=== PATIENT | female | born 1930 | race Caucasian/White ===

== ENCOUNTER 2020-10-15 11:51 | Inpatient (IN) | payer MEDICARE, OTHER ==
[~2020-10-15] VITALS: Ht 157.5 cm; Wt 63.0 kg
--- NOTE | 2020-10-15 12:00 | NUR ---
bibra from home c/o glf, r hip pain and r shoulder pain. Patient a/ox2-3, breathing even and unlabored, nos ob noted, attached tot he teletypesetter monitor. No distress noted.
--- NOTE | 2020-10-15 12:41 | NUR ---
MOVE SHEET SUBMITTED AND CALLED FOR TELE BED.
--- NOTE | 2020-10-15 12:46 | NUR ---
patient taken to ct.
[2020-10-15] MEDS ORDERED: ZOLP10TA2 PO (13:17)
[2020-10-15] MEDS ORDERED: SITA50TA PO (13:17)
[2020-10-15] MEDS ORDERED: DEXL60CA3 PO (13:17)
[2020-10-15] MEDS ORDERED: CELE-85 PO (13:17)
[2020-10-15] MEDS ORDERED: ALPR0.5T8 PO (13:17)
[2020-10-15] MEDS ORDERED: GABA-532 PO (13:17)
[2020-10-15] MEDS ORDERED: OLME20TA23 PO (13:17)
[2020-10-15] MEDS ORDERED: TRAM50TA2 PO (13:17)
[2020-10-15] MEDS ORDERED: INSU100I26 SQ (13:17)
[2020-10-15] MEDS ORDERED: NEBI10TA2 PO (13:17)
[2020-10-15 13:35] LABS: CALCIUM, SERUM 9.3 mg/dL (8.5-10.1); CARBON DIOXIDE 26 mmol/L (21-32); CHLORIDE 100 mmol/L (98-107); CREATININE 0.8 mg/dL (0.6-1.3); GLUCOSE 181 mg/dL (74-106); POTASSIUM 4.9 mmol/L (3.5-5.1); SODIUM SERUM 136 mmol/L (136-145); UREA NITROGEN, BLOOD 12 mg/dL (7-18)
[2020-10-15 13:41] LABS: ALANINE AMINOTRANSFERASE 26 U/L (12-78); ALBUMIN 3.6 g/dL (3.4-5.0); ALKALINE PHOSPHATASE 189 U/L (46-116); ASPARTATE AMINOTRANSFERASE 29 U/L (15-37); BILIRUBIN,DIRECT 0.4 mg/dL (0.0-0.2); BILIRUBIN,TOTAL 1.1 mg/dL (0.2-1.0)
[2020-10-15 15:33] LABS: BASOPHILS # (AUTO) 0.1 /CMM (0.0-0.2); BASOPHILS % (AUTO) 0.7 % (0.0-2.0); EOSINOPHILS % (AUTO) 0.1 % (0.0-6.0); HEMATOCRIT 44 % (33-45); HEMOGLOBIN 14.1 g/dL (11.5-14.8); LYMPHOCYTES # (AUTO) 1.2 /CMM (0.8-4.8); LYMPHOCYTES % (AUTO) 8.5 % (20.0-44.0); MEAN CORPUSCULAR HGB CONC 32 g/dl (31.0-36.0); MEAN CORPUSCULAR VOLUME 85 fL (82-100); MONOCYTES # (AUTO) 0.7 /CMM (0.1-1.30); MONOCYTES % (AUTO) 5.4 % (2.0-12.0); NEUTROPHILS # (AUTO) 11.6 /CMM (1.8-8.9); NEUTROPHILS % (AUTO) 85.3 % (43.0-81.0); PLATELET COUNT (AUTO) 283 /CMM (150-450); RED BLOOD CELL COUNT(AUTO) 5.18 MIL/uL (4.0-5.2); WHITE BLOOD COUNT (AUTO) 13.6 K/uL (4.3-11.0)
[2020-10-15] MEDS ORDERED: ONDANSETRON HCL/PF 4 MG/2 ML VIAL IVP PRN (16:00)
[2020-10-15] MEDS ORDERED: IV NS 0.9% 1,000 ML IV PRN (16:00)
[2020-10-15] MEDS ORDERED: ZOLPIDEM TARTRATE 5 MG TABLET PO PRN (16:00)
[2020-10-15] MEDS ORDERED: ACETAMINOPHEN 325 MG TABLET PO PRN (16:00)
[2020-10-15] MEDS ORDERED: MAG HYDROX/AL HYDROX/SIMETH 30 ML UDC PO PRN (16:00)
[2020-10-15] MEDS ORDERED: MAGNESIUM HYDROXIDE 30 ML UDC PO PRN (16:00)
[2020-10-15] MEDS ORDERED: Z GUARD REMEDY 2 OZ OINT TP PRN (16:00)
[2020-10-15] MEDS ORDERED: GABAPENTIN 300 MG CAPSULE ONE (20:48)
--- NOTE | 2020-10-15 20:57 | NUR ---
SPOKE TO PHARMACY REGARDING ADMISSION MEDS. AWAITING FOR PHARMACY TO DELIVER MEDS.
--- NOTE | 2020-10-15 21:31 | NUR ---
bed assignment: 306-2
--- NOTE | 2020-10-15 22:00 | NUR ---
REPORT GIVEN TO SAYDA DEJESUS FOR ADMISSION. PER SAYDA, BRING PT TO 306-1
--- NOTE | 2020-10-15 22:06 | NUR ---
REPORT GIVEN TO ISRAEL DEJESUS FOR DHEERAJ
--- NOTE | 2020-10-15 22:33 | NUR ---
PT'S MEDS GIVEN TO LAURI DEJESUS BY EMT.
--- NOTE | 2020-10-15 22:33 | NUR ---
PT TRANSFERED PER [facility]
[2020-10-15 22:35] VITALS: BP 107/67
--- NOTE | 2020-10-15 22:35 | NUR ---
TELERN RECEIVED FROM ER CONFUSED FEMALE GREEK PATIENT S/P GLF AT HOME. UNABLE TO GET INFORM. NO SOB V/S STABLE PLACED TO BED COMFORTABLY, TRYING TO GET OOB. SIDERAILS X3 UP. HOB ELEVATED. UNCOOPERATIVE FOR NOW. TO CONTINUE.
--- NOTE | 2020-10-16 00:53 | NUR ---
TELERN LATE MEDS STARTED, INITIALLY REFUSED ANY MEDS. STATED "NO MEDICINE" INCONTINENT, KEPT DRY CLEAN AND COMFORTABLE. REPOSITIONED .
[2020-10-16] MEDS: ENOXAPARIN SODIUM 40 MG/0.4 ML DISP.SYRIN SQ SCH ×2 (01:41→21:20)
[2020-10-16] MEDS: INSULIN GLARGINE, 100 UNIT/ML CARTRIDGE SQ SCH ×2 (01:44→22:26)
[2020-10-16] MEDS: GABAPENTIN 300 MG CAPSULE PO SCH ×3 (01:46→16:19)
--- NOTE | 2020-10-16 02:00 | NUR ---
TELERN WAS QUIET FOR AWHILE AGREED TO TAKE ONLY PAIN MED. BS WAS 236, LANTUS 30 UNITS STARTED.
[2020-10-16] MEDS: HYDROCODONE/APAP 5/325MG TABLET PO PRN ×2 (02:07→11:43)
--- NOTE | 2020-10-16 03:45 | NUR ---
TELERN MOVED TO ROOM 309 FOR CLOSER OBSERVATION. STARTING TO PULL LINE AND TELE AND [place]. STILL UNABLE TO CONNECT PT TO IVF FOR NOW. NEEDS CONSTANT OBSERVATION. BED ALARM ON. CLOSELY WATCHED.
[2020-10-16 05:30] VITALS: BP 100/73
--- NOTE | 2020-10-16 05:42 | NUR ---
TELERN PULLED OUT HEPLOCK, COMBATIVE THIS TIME. QUIET WHEN LEFT FOR FEW MIN.
[2020-10-16 06:55] LABS: BASOPHILS # (AUTO) 0.1 /CMM (0.0-0.2); BASOPHILS % (AUTO) 0.7 % (0.0-2.0); HEMATOCRIT 42 % (33-45); HEMOGLOBIN 13.7 g/dL (11.5-14.8); LYMPHOCYTES # (AUTO) 1.7 /CMM (0.8-4.8); LYMPHOCYTES % (AUTO) 16.9 % (20.0-44.0); MEAN CORPUSCULAR HGB CONC 33 g/dl (31.0-36.0); MEAN CORPUSCULAR VOLUME 84 fL (82-100); MONOCYTES # (AUTO) 0.7 /CMM (0.1-1.30); MONOCYTES % (AUTO) 6.7 % (2.0-12.0); NEUTROPHILS # (AUTO) 7.4 /CMM (1.8-8.9); NEUTROPHILS % (AUTO) 75.7 % (43.0-81.0); PLATELET COUNT (AUTO) 311 /CMM (150-450); RED BLOOD CELL COUNT(AUTO) 5.02 MIL/uL (4.0-5.2); WHITE BLOOD COUNT (AUTO) 9.8 K/uL (4.3-11.0)
[2020-10-16 07:12] LABS: CALCIUM, SERUM 9.2 mg/dL (8.5-10.1); MAGNESIUM 1.6 mg/dL (1.8-2.4); PHOSPHORUS 2.5 mg/dL (2.5-4.9); POTASSIUM 3.6 mmol/L (3.5-5.1)
[2020-10-16 07:22] LABS: THYROID STIMULATING HORMONE 0.75 uIU/mL (0.358-3.74)
[2020-10-16 08:00] VITALS: BP 114/57
[2020-10-16] MEDS: LOSARTAN POTASSIUM 25 MG TABLET PO SCH (09:11)
[2020-10-16] MEDS: LINAGLIPTIN 5 MG TABLET PO SCH (09:11)
--- NOTE | 2020-10-16 09:42 | NUR ---
WOUND CARE CONSULT: PT PRESENTS WITH INTACT SKIN. PT IS INCONTINENT. SITTER AT BEDSIDE. RECOMMENDATIONS MADE FOR SKIN PROTECTION. DISCUSSED WITH NURSING STAFF. MD IN AGREEMENT WITH PLAN OF CARE.
[2020-10-16] MEDS ORDERED: Magnesium 1GM/D5W 100ML PREMIX 100 ML IV SCH (10:15)
[2020-10-16] MEDS ORDERED: MAGNESIUM OXIDE 400 MG TABLET PO ONE (11:00)
--- NOTE | 2020-10-16 18:30 | NUR ---
Tele/RN - End of shift summary Patient is A/O x 1, frequent orientation given, denies pain, no acute distress, stable on room air, tele shows SR, sitter at bedside for safety. Patient uncooperative with care, refused carotid doppler, echo and peripheral IV to be inserted. All needs attended. Will continue with current medical management.
[2020-10-16 20:00] VITALS: BP 114/57
--- NOTE | 2020-10-16 20:10 | NUR ---
RN OPENING NOTE RECEIVED PATIENT IN BED RESTING ALERT ORIENTED X1 VERBALLY RESPONSIVE NO SOB NOT ACUTE DISTRESS NOTED,ITALIAN SPEAKER ONLY,ON ROOM AIR O2:97% NON COMPLIANCE WITH TREATMENT CARE,ANXIOUS,NON COOPERATIVE,HAS SITTER,SAFETY MEASURE IMPLEMENT,CONTINUE TO MONITOR
[2020-10-17] VITALS: BP 118/58
[2020-10-17 04:00] VITALS: BP 115/60
[2020-10-17 06:16] LABS: CALCIUM, SERUM 9.2 mg/dL (8.5-10.1); CREATININE 0.8 mg/dL (0.6-1.3)
--- NOTE | 2020-10-17 06:40 | NUR ---
RN CLOSING NOTE PATIENT REMAINS ALERT CONFUSED,ANXIOUS VERBALLY RESPONSIVE NO SOB NOT ACUTE DISTRESS NOTED,MACEDONIAN SPEAKER ONLY,ON ROOM AIR O2:96% HAS SITTER,NO IV ACCESS,ALL DUE MEDS GIVEN MD ORDERED BS CHECKED KEPT CLEAN AND DRY ALL THE TIME,KEPT COMFORTABLE,ENDORSE NEXT DOMING SHIFT FOR CONTINUATION OF CARE.
[2020-10-17] MEDS: GABAPENTIN 300 MG CAPSULE PO SCH ×2 (08:26→16:16)
[2020-10-17] MEDS: LOSARTAN POTASSIUM 25 MG TABLET PO SCH (08:47)
[2020-10-17] MEDS: LINAGLIPTIN 5 MG TABLET PO SCH (08:47)
[2020-10-17 17:12] LABS: BILIRUBIN,URINE MODERATE (NEGATIVE); BLOOD, URINE LARGE Ery/uL (NEGATIVE); COLOR,URINE YELLOW (YELLOW); LEUKOCYTE ESTERASE ,URINE NEGATIVE (NEGATIVE); NITRITE, URINE NEGATIVE (NEGATIVE); PH,URINE 5.5 (5.0-8.0); PROTEIN,URINE 30 mg/dl (NEGATIVE); UGLUCOSE >=1000 mg/dL (NEGATIVE)
[2020-10-17 17:45] LABS: BACTERIA,URINE 4+ /HPF (None Seen)
[2020-10-17 17:46] LABS: SQUAMOUS EPITHELIAL CELL,UR 0-2 /HPF (None Seen)
--- NOTE | 2020-10-17 18:43 | NUR ---
TELE/RN CLOSING NOTE PATIENT IN BED. A/O X1-2. AFEBRILE. NO SIGNS OF RESPIRATORY DISTRESS. UNCOOPERATIVE AND NON COMPLIANT WITH TREATMENT REGIMEN. SITTER AT THE BEDSIDE FOR SAFETY. SAFETY PRECAUTIONS MAINTAINED. BED IN LOWEST POSITION. CALL LIGHT WITHIN REACH. WILL ENDORSE CONTINUITY OF CARE TO FLORICULTURE PROFESSOR.
--- NOTE | 2020-10-17 20:38 | NUR ---
PATIENT UNCOOPERATIVE AND COMBATIVE. UNABLE TO PERFORM AN ECHOCARDIOGRAM. WILL TRY BENNY.
[2020-10-17] MEDS: INSULIN GLARGINE, 100 UNIT/ML CARTRIDGE SQ SCH (22:00)
[2020-10-17] MEDS: ENOXAPARIN SODIUM 40 MG/0.4 ML DISP.SYRIN SQ SCH (22:06)
--- NOTE | 2020-10-17 22:32 | NUR ---
MS RN NOTE: HELD LANTUS PATIENT'S BLOOD SUGAR IS 307 MG/DL, PATIENT REFUSED TO EAT, TRIED MULTIPLE TIMES BUT CONTINUED TO REFUSE TO EAT. HELD LANTUS AT 2200 TO PREVENT HYPOGLYCEMIA. SITTER AT BED SIDE. WILL CONTINUE TO MONITOR FOR ANY CHANGES.
[2020-10-18 00:05] VITALS: BP 147/87
--- NOTE | 2020-10-18 01:40 | NUR ---
MS RN NOTE PATIENT IS UNCOOPERATIVE WITH CARE AT TIMES, REFUSES TO KEEP TELE MONITORING LEADS ON, KEEPS PULLING THEM OFF, SITTER AT BED SIDE BUT PATIENT STILL REMOVES THE LEADS EVERY TIME APPLIED. NO ACUTE DISTRESS NOTED AT THIS TIME. WILL CONTINUE TO MONITOR FOR DHEERAJ.
[2020-10-18 02:15] VITALS: BP 138/79
--- NOTE | 2020-10-18 07:14 | NUR ---
SLICE CUTTING MACHINE OPERATOR HELPER CLOSING NOTE PATIENT REMAINS ALERT BUT CONFUSED, ANXIOUS VERBALLY RESPONSIVE NO SOB, NO ACUTE DISTRESS NOTED, THAI SPEAKER ONLY,ON ROOM AIR, SITTER, ATTEMPTS TO GET OUT OF BED UNASSISTED, FALL RISK, NO IV ACCESS, BS CHECKED. KEPT CLEAN AND DRY ALL THE TIME, KEPT COMFORTABLE, WILL ENDORSE TO AM RN FOR CONTINUITY OF CARE.
[2020-10-18] MEDS: LINAGLIPTIN 5 MG TABLET PO SCH (09:00)
[2020-10-18] MEDS: LOSARTAN POTASSIUM 25 MG TABLET PO SCH (09:00)
[2020-10-18] MEDS: GABAPENTIN 300 MG CAPSULE PO SCH ×2 (10:53→17:00)
--- NOTE | 2020-10-18 13:44 | NUR ---
SW Consult Note: BROOKS spoke to RN Xochilt and Charge Nurse Kareen regarding this pt. Pt is going to be seen by psychiatrist, Dr Christiansen, in a few hours and then the pt will be evaluated for medical clearance by ANNELISE Shen. SW will follow up.
--- NOTE | 2020-10-18 15:01 | NUR ---
RN-NOTES PATIENT REFUSED TO HAVE IV INSERTION DESPITE FEW ATTEMPTS. SELECTIVE WITH MEDICATIONS . ALSO PATIENT REFUSED TO EAT AND DRINK ,ROCIO LEIJA MADE AWARE
[2020-10-18] MEDS: risperiDONE 1 MG TABLET PO SCH (18:29)
--- NOTE | 2020-10-18 18:43 | NUR ---
RN-NOTES PATIENT REFUSED RISPERDAL 0.5MG P.O AND GABAPENTIN 300MG P.O OFFERED X3
--- NOTE | 2020-10-18 20:45 | NUR ---
RN -NOTES PATIENT AWAKE,ALERT LAYING IN BED NO ACUTE DISTRESS NOTED.PATIENT REFUSED TO EAT AND DRINK THIS SHIFT DESPITE ENCOURAGEMENT. DNP AWARE. SEEN BY DR. KC .PER SITTER STAFF PATIENT DID NOT URINATE, BLADDER SCAN DONE SEEN WITH 459IN THE BLADDER.PER CHARGE NURSE WILL OFFER AND ENCOURAGE TO DRINK AND ENDORSE TO IN COMING NURSE FOR FOLLOW AND CONTINUITY OF CARE. ALL NEEDS ATTENDED AND ANTICIPATED CALL LIGHT WITHIN REACH.ON 1:1 SITTER FOR SAFETY .
[2020-10-18] MEDS ORDERED: MIRTAZAPINE 15 MG TABLET PO SCH (22:00)
[2020-10-18] MEDS: INSULIN GLARGINE, 100 UNIT/ML CARTRIDGE SQ SCH (22:00)
[2020-10-18] MEDS: ENOXAPARIN SODIUM 40 MG/0.4 ML DISP.SYRIN SQ SCH (22:05)
--- NOTE | 2020-10-18 22:06 | NUR ---
RN NOTE: MEDICATION REFUSAL PATIENT REFUSED REMERON DOSE AND LANTUS SCHEDULED. EDUCATED PATIENT REGARDING MEDICATION COMPLIANCE. PATIENT CONTINUED TO REFUSE. PATIENT IS VERY UNCOOPERATIVE. WILL CONTINUE TO MONITOR. Addendum: 10/18/20 at 2322 by QUINCY MOSES RN PATIENT AGREED TO HAVE HER BLOOD SUGAR CHECKED RESULTED TO 337MG/DL. NON-ADMINISTERED OF LANTUS DUE TO PATIENT REFUSED TO EAT AND DRINK. Addendum: 10/18/20 at 2323 by QUINCY MOSES RN BLOOD SUGAR -332MG/DL
--- NOTE | 2020-10-19 00:53 | NUR ---
RUCHING MACHINE OPERATOR NOTE: PATIENT HAD AN EPISODES OF LOOSE BOWEL MOVEMENT X4. NO STRONG OR FOUL ODOR NOTED. OFFERED APPLE JUICE, PT. TOLERATED WELL. NOTIFIED DR. JONES REGARDING PATIENT'S FINDING WITH NO NEW ORDER AT THIS TIME. WILL CONTINUE TO MONITOR.
[2020-10-19 00:57] VITALS: BP 112/87
[2020-10-19] MEDS: risperiDONE 1 MG TABLET PO SCH ×2 (05:36→18:30)
--- NOTE | 2020-10-19 05:36 | NUR ---
RN NOTE: MEDICATION REFUSAL PATIENT REFUSED RISPERIDONE DOSE SCHEDULED. EDUCATED PATIENT REGARDING MEDICATION COMPLIANCE. PATIENT CONTINUED TO REFUSE. PATIENT WAS UNCOOPERATIVE AND SPITS MED. WILL ENDORSE TO THE DAY SHIFT NURSE FOR CONTINUITY OF CARE.
--- NOTE | 2020-10-19 06:16 | NUR ---
RUG SETTER AXMINSTER CLOSING NOTE PATIENT IN BED ASLEEP. AROUSES EASILY. PATIENT REMAINS CONFUSED AND ANXIOUS. NO ACUTE DISTRESS NOTED. KITTITIAN SPEAKER ONLY, ON ROOM AIR, PT REFUSED IV ACCESS. PATIENT NON-COMPLIANT WITH MEDS. ON 1:1 SITTER FOR SAFETY. KEPT CLEAN, DRY AND COMFORTABLE. WILL ENDORSE TO AM RN FOR CONTINUITY OF CARE. Addendum: 10/19/20 at 0619 by QUINCY MOSES RN PATIENT REMAINS ON MOBILE ARCHITECT SR 93.
--- NOTE | 2020-10-19 07:38 | NUR ---
ADVERTISING CLERK OPENING NOTES RECEIVED PATIENT RESTING IN BED, A/OX1 VERBALLY RESPONSIVE, [place] SPEAKING. PATIENT ON RA WITH NO SIGNS OF ACUTE RESPIRATORY DISTRESS NOTED BREATHING EVEN AND UNLABORED. NO C/O PAIN OR DISCOMFORT AT THIS TIME. PT WITH 1:1 SITTER. NO IV ACCESS IN PLACE. PT REFUSES IV. PATIENT ON TELE MONITOR READING SINUS RHYTHM WITH HR IN THE 90'S. BED IS AT LOWEST POSITION AND LOCKED WITH SIDE RAILS UPX2 AND CALL LIGHT WITH IN REACH. WILL CONTINUE TO MONITOR PATIENT
[2020-10-19 10:09] VITALS: BP 142/77
[2020-10-19] MEDS: LINAGLIPTIN 5 MG TABLET PO SCH (10:09)
[2020-10-19] MEDS: GABAPENTIN 300 MG CAPSULE PO SCH ×2 (10:09→17:00)
[2020-10-19] MEDS: LOSARTAN POTASSIUM 25 MG TABLET PO SCH (10:09)
--- NOTE | 2020-10-19 19:34 | NUR ---
TELE /MS D/C NOTES RECEIVED D/C ORDERS. PATIENT AND DTR YEFRI NOTIFIED. PT IN STABLE CONDITION FOR TRANSFER FOR SNF. MEDICATION, DISCHARGE INSTRUCTIONS AND EDUCATION PROVIDED TO PATIENT. BELONGINGS CHECKED, SKIN CHECK DONE, SKIN INTACT. NO FC IN PLACE NO IV IN PLACE. TELE MONITOR REMOVED AND GAVE TO LEARNING FACILITATOR. PATIENT PICKED UP BY [facility] AND WAS D/C IN STABLE CONDITION. BELONGINGS WITH PATIENT.
== END 2020-10-19 19:19 | DRG 74 ==
LOC: ER 12:13 → TRANSITION 20:22 → UNDOADMIN 20:22 → TELE 21:33
PROVIDERS: ATTEND Nurse Practitioner Acute Care
DX: G90.8 Other disorders of autonomic nervous system (principal); S42.301A Unspecified fracture of shaft of humerus, right arm, initial encounter for closed fracture; E44.0 Moderate protein-calorie malnutrition; S32.502A Unspecified fracture of left pubis, initial encounter for closed fracture; S32.049A Unspecified fracture of fourth lumbar vertebra, initial encounter for closed fracture; W18.30XA Fall on same level, unspecified, initial encounter; Y92.9 Unspecified place or not applicable; D72.829 Elevated white blood cell count, unspecified; R62.7 Adult failure to thrive; E83.42 Hypomagnesemia; Z98.890 Other specified postprocedural states; F29 Unspecified psychosis not due to a substance or known physiological condition; F32.9 Major depressive disorder, single episode, unspecified; I10 Essential (primary) hypertension; E11.65 Type 2 diabetes mellitus with hyperglycemia; I67.2 Cerebral atherosclerosis; Z79.4 Long term (current) use of insulin; Z79.899 Other long term (current) drug therapy; M19.90 Unspecified osteoarthritis, unspecified site; S09.90XA Unspecified injury of head, initial encounter; M85.80 Other specified disorders of bone density and structure, unspecified site; M19.011 Primary osteoarthritis, right shoulder; Z90.49 Acquired absence of other specified parts of digestive tract; K57.90 Diverticulosis of intestine, part unspecified, without perforation or abscess without bleeding; R74.8 Abnormal levels of other serum enzymes; K46.9 Unspecified abdominal hernia without obstruction or gangrene; I70.0 Atherosclerosis of aorta; F03.90 Unspecified dementia, unspecified severity, without behavioral disturbance, psychotic disturbance, mood disturbance, and anxiety
CPT/HCPCS: 36415; 70450-TC; 71045-TC; 72125-TC; 72131-TC; 72192-TC; 73030-TC; 73502; 76705-TC; 80048-TC; 80061-TC; 80076-TC; 81001; 82962-TC; 83605-TC; 83735-TC; 84100-TC; 84443-TC; 84484-TC; 85025-TC; 85730-TC; 87040-TC; 87081-TC; 87086-TC; 87186-TC; 97112-TC; 97116-TC; 97530-TC; C9803; G0378; J1650; J1815; J7030